=== PATIENT | female | born 1960 | race Caucasian/White ===

== ENCOUNTER 2017-05-19 12:43 | Emergency (ER) | payer OTHER ==
[~2017-05-19] VITALS: Ht 154.9 cm; Wt 74.8 kg
[2017-05-19 12:56] VITALS: BP 144/94
[2017-05-19] MEDS ORDERED: TETANUS-DIPTH-ACEL PERTUSSIS 0.5ML SYRG IM ONE (14:15)
== END 2017-05-19 15:12 | disposition home or self-care (01) ==
LOC: ER 12:43
DX: S80.01XA Contusion of right knee, initial encounter (principal); L03.115 Cellulitis of right lower limb; Z88.2 Allergy status to sulfonamides; W01.0XXA Fall on same level from slipping, tripping and stumbling without subsequent striking against object, initial encounter; Y93.89 Activity, other specified; Y92.89 Other specified places as the place of occurrence of the external cause; Y99.8 Other external cause status
CPT/HCPCS: 73560; 90471; 90715